=== PATIENT | female | born 1975 | race Caucasian/White ===

== ENCOUNTER 2020-02-26 05:46 | Emergency (ER) | payer OTHER, BC ==
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
[2020-02-26 06:41] VITALS: BP 130/79; PULSE 88
== END 2020-02-26 06:48 | disposition home or self-care (01) ==
LOC: LL.ED 05:46
DX: Z04.1 Encounter for examination and observation following transport accident (principal); Z91.018 Allergy to other foods; E66.9 Obesity, unspecified; V89.2XXA Person injured in unspecified motor-vehicle accident, traffic, initial encounter
CPT/HCPCS: 36415; 73020-LT; 85025; 93005; 99282; 99284-25